=== PATIENT | male | born 1980 | race African-American/Black ===

== ENCOUNTER 2024-09-24 00:11 | Emergency (ER) | payer OTHER ==
[~2024-09-24] VITALS: Ht 188 cm; Wt 90.0 kg
[2024-09-24 00:18] VITALS: O2SAT 100
[2024-09-24] MEDS: ACETAMINOPHEN 500MG TABLET PO ONE (01:32)
[2024-09-24 03:12] VITALS: BP 162/105; PULSE 60; RESP 18; TEMP 36.8; O2SAT 100
== END 2024-09-24 03:16 | disposition home or self-care (01) ==
LOC: ER 00:33
DX: G43.909 Migraine, unspecified, not intractable, without status migrainosus (principal); I10 Essential (primary) hypertension; Z88.0 Allergy status to penicillin; Z88.6 Allergy status to analgesic agent; Z88.8 Allergy status to other drugs, medicaments and biological substances; Z86.59 Personal history of other mental and behavioral disorders
CPT/HCPCS: 99284